=== PATIENT | female | born 1990 ===

== ENCOUNTER 2023-02-18 10:01 | Inpatient (IN) | payer OTHER ==
[~2023-02-18] VITALS: Ht 157.5 cm; Wt 63.6 kg
[2023-02-18 11:07] LABS: BASOPHILS % (AUTO) 0.5 % (0.0-2.0); EOSINOPHILS % (AUTO) 0.1 % (1.0-6.0); HEMOGLOBIN 12.5 g/dL (12.0-16.0); LYMPHOCYTES # (AUTO) 1.3 K/uL (1.0-4.8); LYMPHOCYTES % (AUTO) 22.4 % (22.0-44.0); MEAN CORPUSCULAR HEMOGLOBIN 27.5 pg (26.0-34.0); MEAN CORPUSCULAR VOLUME 83 fL (80-100); MONOCYTES # (AUTO) 0.4 K/uL (0.1-1.0); MONOCYTES % (AUTO) 6.6 % (2.0-9.0); NEUTROPHILS # (AUTO) 4.1 K/uL (1.8-7.7); NEUTROPHILS % (AUTO) 70.4 % (40.0-70.0); PLATELET COUNT (AUTO) 235 K/uL (150-450); RED BLOOD CELL COUNT(AUTO) 4.56 MIL/uL (4.00-5.20); RED CELL DISTRIBUTION WIDTH 15.4 % (11.5-14.5); WHITE BLOOD COUNT (AUTO) 5.8 K/uL (4.5-11.0)
[2023-02-18 11:17] LABS: ANION GAP 6 mmol/L (8-16); CALCIUM, TOTAL 9.3 mg/dL (8.8-10.5); CARBON DIOXIDE 27 mmol/L (22-29); CHLORIDE 102 mmol/L (98-107); GLOMERULAR FILTR. RATE CALC > 60 mL/min (>60); GLUCOSE,RANDOM 93 mg/dL (70-110); POTASSIUM 3.7 mmol/L (3.5-5.1); SODIUM SERUM 135 mmol/L (136-145); UREA NITROGEN, BLOOD 8 mg/dL (7-18)
[2023-02-18 11:23] LABS: ALANINE AMINOTRANSFERASE 22 U/L (12-78); ALBUMIN 3.6 g/dL (3.4-5.0); ALKALINE PHOSPHATASE 68 U/L (46-116); ASPARTATE AMINOTRANSFERASE 21 U/L (15-37); BILIRUBIN,TOTAL 0.5 mg/dL (0.1-1.0); TOTAL PROTEIN, SERUM 7.4 g/dL (6.4-8.2)
[2023-02-18 11:26] LABS: ALCOHOL, BLOOD (SERUM) < 3 mg/dL (0-10)
[2023-02-18 11:34] LABS: COVID AG,FIA SOURCE NASAL SWAB
[2023-02-18 11:52] LABS: SARS-COV2 (COVID) ANTIGEN,FIA Negative (Negative)
[2023-02-18] MEDS ORDERED: DICYCLOMINE HCL 10 MG CAPSULE PO PRN (13:30)
[2023-02-18] MEDS ORDERED: LOPERAMIDE HCL 2 MG CAPSULE PO PRN (13:30)
[2023-02-18] MEDS ORDERED: LORazepam 2 MG/ML VIAL IVP PRN (13:30)
[2023-02-18] MEDS ORDERED: SODIUM CHLORIDE 0.9% 1,000 ML IV ONE (13:30)
[2023-02-18 14:53] VITALS: BP 101/56; PULSE 63; RESP 16; TEMP 98.2
[2023-02-18 19:50] VITALS: BP 98/54; PULSE 71; RESP 16; TEMP 98.7
[2023-02-18] MEDS: TEMAZEPAM 15 MG CAPSULE PO SCH (20:28)
[2023-02-19 04:30] VITALS: BP 108/42; PULSE 99; RESP 16; TEMP 98.5
[2023-02-19 05:20] LABS: AMPHET/METH SCREEN,URINE POSITIVE (NEGATIVE); BARBITURATE SCREEN, URINE NEGATIVE (NEGATIVE); BENZODIAZEPINES SCREEN,URINE NEGATIVE (NEGATIVE); CANNABINOID SCREEN,URINE NEGATIVE (NEGATIVE); COCAINE SCREEN,URINE NEGATIVE (NEGATIVE); METHADONE SCREEN, URINE NEGATIVE (NEGATIVE); OPIATE SCREEN,URINE NEGATIVE (NEGATIVE); PHENCYCLIDINE SCREEN,URINE NEGATIVE (NEGATIVE)
[2023-02-19 05:22] LABS: ALCOHOL, URINE DRUG SCREEN NEGATIVE (NEGATIVE)
[2023-02-19 08:06] VITALS: BP 123/74; PULSE 69; RESP 17; TEMP 97.7
[2023-02-19 20:03] VITALS: BP 107/64; PULSE 73; RESP 18; TEMP 98.3
[2023-02-19] MEDS: TEMAZEPAM 15 MG CAPSULE PO SCH (20:07)
[2023-02-20 04:52] VITALS: BP 120/70; PULSE 92; RESP 18; TEMP 98.4
[2023-02-20 07:04] LABS: BASOPHILS % (AUTO) 0.4 % (0.0-2.0); EOSINOPHILS % (AUTO) 0 % (1.0-6.0); HEMATOCRIT 37.8 % (36-46); HEMOGLOBIN 12.9 g/dL (12.0-16.0); LYMPHOCYTES # (AUTO) 1.7 K/uL (1.0-4.8); LYMPHOCYTES % (AUTO) 25.1 % (22.0-44.0); MEAN CORPUSCULAR HEMOGLOBIN 28.2 pg (26.0-34.0); MEAN CORPUSCULAR HGB CONC 34.2 G/dL (31.0-37.0); MEAN CORPUSCULAR VOLUME 83 fL (80-100); MONOCYTES # (AUTO) 0.3 K/uL (0.1-1.0); MONOCYTES % (AUTO) 5.1 % (2.0-9.0); NEUTROPHILS # (AUTO) 4.8 K/uL (1.8-7.7); NEUTROPHILS % (AUTO) 69.4 % (40.0-70.0); PLATELET COUNT (AUTO) 222 K/uL (150-450); RED BLOOD CELL COUNT(AUTO) 4.58 MIL/uL (4.00-5.20); RED CELL DISTRIBUTION WIDTH 15.1 % (11.5-14.5); WHITE BLOOD COUNT (AUTO) 6.9 K/uL (4.5-11.0)
[2023-02-20 07:55] VITALS: BP 111/78; PULSE 100; RESP 18; TEMP 99.1
[2023-02-20 15:05] VITALS: BP 118/72; PULSE 94; RESP 18; TEMP 98.8
[2023-02-20 19:30] VITALS: BP 127/60; PULSE 87; RESP 18; TEMP 98.7
[2023-02-20] MEDS: TEMAZEPAM 15 MG CAPSULE PO SCH (20:19)
[2023-02-21 04:21] VITALS: BP 110/84; PULSE 86; RESP 18; TEMP 98.2
[2023-02-21 08:13] VITALS: BP 130/71; PULSE 78; RESP 19; TEMP 99.5
[2023-02-21] MEDS: METOCLOPRAMIDE HCL 5 MG/ML 2 ML VIAL IVP PRN ×2 (08:38→15:49)
[2023-02-21] MEDS: TEMAZEPAM 15 MG CAPSULE PO SCH (20:04)
[2023-02-21 20:05] VITALS: BP 125/72; PULSE 89; RESP 18; TEMP 98.7
[2023-02-22 04:35] VITALS: BP 93/61; PULSE 93; RESP 18; TEMP 98.1
[2023-02-22 09:31] VITALS: BP 119/66; PULSE 91; RESP 18; TEMP 98.5
== END 2023-02-22 14:25 | DRG 760 ==
LOC: EMS 10:08 → 6S 12:24
PROVIDERS: ADMIT Internal Medicine; ATTEND Internal Medicine
PROC: 0UCGXZZ Extirpation of Matter from Vagina, External Approach (ICD-10-PCS; principal; 2023-02-18)
DX: T19.2XXA Foreign body in vulva and vagina, initial encounter (principal); E87.1 Hypo-osmolality and hyponatremia; F11.93 Opioid use, unspecified with withdrawal; F19.10 Other psychoactive substance abuse, uncomplicated; W44.9XXA Unspecified foreign body entering into or through a natural orifice, initial encounter; Z20.822 Contact with and (suspected) exposure to COVID-19; Y92.89 Other specified places as the place of occurrence of the external cause
CPT/HCPCS: 71045; 74176; 80053; 80307; 85025; 93005; 99285; G0480; J2765; J7030; 36415-L1; 36415-TC